=== PATIENT | female | born 1965 | race Hispanic/Latino ===

== ENCOUNTER 2021-06-21 05:38 | Day surgery (SDC) | payer BC ==
[2021-06-20 11:46] LABS: BASOPHILS % (AUTO) 1.3 % (0.0-5.0); EOSINOPHILS % (AUTO) 2.1 % (0.0-8.0); HEMATOCRIT 46.1 % (36-48); MEAN CORPUSCULAR HEMOGLOBIN 27.6 pg (27.0-33.0); MEAN CORPUSCULAR HGB CONC 31.2 g/dL (32.0-36.0); MEAN CORPUSCULAR VOLUME 88.5 fL (79-99); MONOCYTES % (AUTO) 8.8 % (3.0-13.0); NEUTROPHILS % (AUTO) 53.5 % (40.0-77.0); PLATELET COUNT (AUTO) 240 K/uL (130-400); RED BLOOD CELL COUNT(AUTO) 5.21 MIL/uL (4.00-5.50); WHITE BLOOD COUNT (AUTO) 6.3 K/uL (4.8-10.8)
[2021-06-20 13:57] VITALS: BP 171/98
[2021-06-21] VITALS (16 sets, daily range): BP systolic 108–143; BP diastolic 65–77
[~2021-06-21] VITALS: Ht 172.7 cm; Wt 109.1 kg
[~2021-06-21 05:38] MED LIST: GLYB1TAB30 PO
[2021-06-21] MEDS ORDERED: 0.9%NACL 1000ML 1,000 ML IV ONE (05:49)
[2021-06-21] MEDS ORDERED: LIDOCAINE PF 100MG/5ML (2%) SYRINGE 5ML ONE (06:47)
[2021-06-21] MEDS ORDERED: MIDAZOLAM HCL 1 MG/ML 2ML VIAL ONE (06:47)
[2021-06-21] MEDS ORDERED: PROPOFOL 10 MG/ML 20ML VIAL IV ONE (06:47)
[2021-06-21] MEDS ORDERED: ONDANSETRON 4MG INJ ONE (06:48)
[2021-06-21] MEDS ORDERED: ROCURONIUM 10MG/1ML SYR 10 MG/ML ML ONE (06:48)
[2021-06-21] MEDS ORDERED: FENTANYL CITRATE PF 50 MCG/1 ML 2ML VIAL ONE (06:48)
[2021-06-21] MEDS ORDERED: SUCCINYLCHOLINE 200MG/10ML SYR ONE (07:07)
== END 2021-06-21 09:06 | disposition home or self-care (01) ==
LOC: DAH 05:38
PROVIDERS: ATTEND Obstetrics & Gynecology
DX: N95.0 Postmenopausal bleeding (principal); E11.9 Type 2 diabetes mellitus without complications; E66.01 Morbid (severe) obesity due to excess calories; N95.8 Other specified menopausal and perimenopausal disorders; Z79.899 Other long term (current) drug therapy; Z20.822 Contact with and (suspected) exposure to COVID-19
CPT/HCPCS: 36415; 58558; 82948 ×2; 85025; 86850; 86900; 86901; 87635; A4215; A4221; A4222; A4223; A4351; A4355; A4663; A6260; C9803; J0330; J2001; J2250; J2405; J2704; J3010; J7030 ×2

== ENCOUNTER 2021-08-15 18:31 | Emergency (ER) | payer BC ==
[~2021-08-15] VITALS: Ht 172.7 cm; Wt 108.9 kg
[2021-08-15 19:54] LABS: BASOPHILS % (AUTO) 0.7 % (0.0-5.0); EOSINOPHILS % (AUTO) 2.7 % (0.0-8.0); HEMATOCRIT 35.6 % (36-48); LYMPHOCYTES % (AUTO) 26.4 % (21.0-51.0); MEAN CORPUSCULAR HEMOGLOBIN 28.1 pg (27.0-33.0); MEAN CORPUSCULAR HGB CONC 31.7 g/dL (32.0-36.0); MEAN CORPUSCULAR VOLUME 88.6 fL (79-99); MONOCYTES % (AUTO) 8.1 % (3.0-13.0); NEUTROPHILS % (AUTO) 61.4 % (40.0-77.0); PLATELET COUNT (AUTO) 233 K/uL (130-400); RED BLOOD CELL COUNT(AUTO) 4.02 MIL/uL (4.00-5.50); RED CELL DISTRIBUTION WIDTH 13.9 % (11.0-15.5); WHITE BLOOD COUNT (AUTO) 7.3 K/uL (4.8-10.8)
[2021-08-15 20:15] LABS: CREATININE 0.8 mg/dL (0.5-1.5); POTASSIUM 4.3 mmol/L (3.5-5.1)
[2021-08-15 20:16] LABS: B-TYPE NATRIURETIC PEPTIDE 38 pg/mL (0-100)
[2021-08-15 20:22] LABS: ALBUMIN 3.2 g/dL (3.5-5.0); BILIRUBIN,TOTAL 0.3 mg/dL (0.2-1.0); TOTAL PROTEIN, SERUM 6.5 g/dL (6.0-8.3)
[2021-08-15 21:50] VITALS: BP 114/58
== END 2021-08-15 22:12 | disposition home or self-care (01) ==
LOC: EDH 18:31
DX: R60.0 Localized edema (principal); E11.9 Type 2 diabetes mellitus without complications; E78.00 Pure hypercholesterolemia, unspecified; I10 Essential (primary) hypertension; Z79.84 Long term (current) use of oral hypoglycemic drugs; Z90.710 Acquired absence of both cervix and uterus
CPT/HCPCS: 36415; 71045; 80053; 82550; 83880; 84484; 85025; 85378; 93970

== ENCOUNTER 2023-08-12 00:59 | Observation (INO) | payer BC, OTHER ==
[~2023-08-12] VITALS: Ht 172.7 cm; Wt 109.8 kg
[2023-08-12] VITALS (22 sets, daily range): BP systolic 102–164; BP diastolic 50–82; PULSE 55–81; RESP 12–20; O2SAT 96
[~2023-08-12 00:59] MED LIST changes: +GLYB-171 PO; -GLYB1TAB30 PO
[2023-08-12 01:21] LABS: APPEARANCE,URINE CLEAR (CLEAR); BILIRUBIN,URINE NEGATIVE (NEGATIVE); COLOR,URINE LIGHT-YELLOW (YELLOW); GLUCOSE, URINE (UA) >=1000 mg/dL (NEGATIVE); KETONES,URINE NEGATIVE (NEGATIVE); LEUKOCYTE ESTERASE ,URINE NEGATIVE Leu/uL (NEGATIVE); NITRATE,URINE NEGATIVE (NEGATIVE); OCCULT BLOOD,URINE NEGATIVE (NEGATIVE); PROTEIN,URINE NEGATIVE (NEGATIVE); UROBILINOGEN,URINE 0.2 mg/dL (0.2-1.0)
[2023-08-12 01:22] LABS: ADD UA MICROSCOPIC YES
[2023-08-12 01:24] LABS: MUCUS,URINE RARE LPF (None Seen); NON-SQUAMOUS EPITHELIAL CELL <1 /HPF (0-2); SQUAMOUS EPITHELIAL CELL,UR RARE /HPF (0-2); WBC,URINE 0-1 /HPF (0-1)
[2023-08-12 01:26] LABS: BASOPHILS # (AUTO) 0.11 K/uL (0.00-0.20); BASOPHILS % (AUTO) 0.6 % (0.0-5.0); EOSINOPHILS # (AUTO) 0.04 K/uL (0.00-0.70); EOSINOPHILS % (AUTO) 0.2 % (0.0-8.0); HEMATOCRIT 41.8 % (36-48); IMMATURE GRANULOCYTE ABSOLUTE 0.12 K/uL (0-1); LYMPHOCYTES # (AUTO) 1.7 K/uL (1.0-4.8); LYMPHOCYTES % (AUTO) 10.1 % (21.0-51.0); MEAN CORPUSCULAR HEMOGLOBIN 27.6 pg (27.0-33.0); MEAN CORPUSCULAR HGB CONC 32.8 g/dL (32.0-36.0); MEAN CORPUSCULAR VOLUME 84.1 fL (79-99); MONOCYTES # (AUTO) 0.9 K/uL (0.1-1.0); MONOCYTES % (AUTO) 5.2 % (3.0-13.0); NEUTROPHILS # (AUTO) 14.2 K/uL (1.8-7.7); NEUTROPHILS % (AUTO) 83.2 % (40.0-77.0); PLATELET COUNT (AUTO) 261 K/uL (130-400); RED BLOOD CELL COUNT(AUTO) 4.97 MIL/uL (4.00-5.50); RED CELL DISTRIBUTION WIDTH 13.7 % (11.0-15.5); WHITE BLOOD COUNT (AUTO) 17.1 K/uL (4.8-10.8)
[2023-08-12 01:26] LABS: SARS-CoV-2, RNA, NAAT NEGATIVE SARS CoV-2 (NEGATIVE)
[2023-08-12 01:30] LABS: INFLUENZA TYPE A Negative For Type A (NEGATIVE); INFLUENZA TYPE B Negative For Type B (NEGATIVE)
[2023-08-12 01:33] LABS: CREATININE 0.8 mg/dL (0.5-1.5); POTASSIUM 4.2 mmol/L (3.5-5.1)
[2023-08-12 01:37] LABS: ALBUMIN 3.6 g/dL (3.5-5.0); BILIRUBIN,TOTAL 0.5 mg/dL (0.2-1.0)
[2023-08-12] MEDS ORDERED: IOHEXOL-350 75 ML VIAL IV ONE (02:24)
[2023-08-12] MEDS ORDERED: MORPHINE 2 MG SYG IVP ONE (02:30)
[2023-08-12] MEDS ORDERED: ONDANSETRON 4MG INJ ONE ×2 (02:45→12:06)
[2023-08-12] MEDS ORDERED: ONDANSETRON 4MG INJ IVP ONE (03:00)
[2023-08-12] MEDS ORDERED: 0.9%NACL 1000ML 1,000 ML IV ONE (04:00)
[2023-08-12] MEDS ORDERED: ZOSYN 3.375GM +NS 50ML IV ONE (04:00)
[2023-08-12] MEDS ORDERED: MORPHINE 2 MG SYG IVP PRN (04:30)
[2023-08-12] MEDS: ZOSYN 3.375GM +NS 50ML IV SCH ×3 (04:30→19:14)
[2023-08-12] MEDS ORDERED: ONDANSETRON 4MG INJ IVP PRN (04:30)
[2023-08-12] MEDS: PANTOPRAZOLE 40 MG/VIAL IVP SCH ×2 (04:51→09:00)
[2023-08-12 04:53] LABS: INR < 0.93 (0.85-1.15); PROTHROMBIN TIME 10.6 SEC (9.6-11.6)
[2023-08-12 04:54] LABS: PARTIAL THROMBOPLASTIN TIME 27.9 SEC (26.3-35.5)
[2023-08-12 04:56] LABS: HEMOGLOBIN A1C 7.2 % (4.0-6.0)
[2023-08-12] MEDS: INSULIN HUMULIN R 100 UNIT/ML 3ML SQ SCH ×4 (06:00→20:47)
[2023-08-12] MEDS ORDERED: HYDROMORPHONE 1 MG INJ IVP ONE (06:00)
[2023-08-12] MEDS: LACTATED RINGERS 1000ML 1,000 ML IV SCH ×3 (06:11→19:41)
[2023-08-12] MEDS ORDERED: PROPOFOL 10 MG/ML 20ML VIAL IV ONE (11:14)
[2023-08-12] MEDS ORDERED: SUCCINYLCHOLINE 200MG/10ML SYR ONE (11:14)
[2023-08-12] MEDS ORDERED: LIDOCAINE PF 100MG/5ML (2%) SYRINGE 5ML ONE (11:14)
[2023-08-12] MEDS ORDERED: ROCURONIUM BROMIDE 10MG/1ML 5ML VL ONE (11:15)
[2023-08-12] MEDS ORDERED: MIDAZOLAM HCL 1 MG/ML 2ML VIAL ONE (11:15)
[2023-08-12] MEDS ORDERED: FENTANYL CITRATE PF 50 MCG/1 ML 2ML VIAL ONE (11:15)
[2023-08-12] MEDS ORDERED: BUPIVACAINE/PF 0.25% 30ML VIAL IJ ONE (11:30)
[2023-08-12] MEDS ORDERED: LIDOCAINE 1%-EPI 1:100,000 20 ML VIAL ONE (11:30)
[2023-08-12] MEDS ORDERED: CEFAZOLIN SODIUM 1 GM VIAL ONE (11:30)
[2023-08-12] MEDS ORDERED: BUPIVACAINE/EPI/PF 0.25% 30ML VIAL IJ ONE (11:50)
[2023-08-12] MEDS ORDERED: EPHEDRINE SULFATE 50 MG/ML AMPULE ONE ×2 (11:53→13:40)
[2023-08-12] MEDS ORDERED: DEXAMETHASONE SOD PHOSPHATE 10MG/ML 1ML VIAL ONE (12:06)
[2023-08-12] MEDS ORDERED: NEOSTIGMINE METHYLSULFATE 1MG/ML IV ONE (12:18)
[2023-08-12] MEDS ORDERED: ZOSYN 3.375GM+NS 50ML 50 ML ONE (13:28)
[2023-08-12] MEDS ORDERED: HYDROMORPHONE 1 MG INJ IVP PRN (15:30)
[2023-08-12] MEDS ORDERED: OXYCODONE/ACETAMIN 5/325MG TAB PO PRN (15:30)
[2023-08-13] MEDS: LACTATED RINGERS 1000ML 1,000 ML IV SCH ×2 (03:33→11:39)
[2023-08-13] MEDS: ZOSYN 3.375GM +NS 50ML IV SCH ×2 (03:34→11:41)
[2023-08-13 04:00] VITALS: BP 102/55; PULSE 72; RESP 20
[2023-08-13 04:32] LABS: BASOPHILS # (AUTO) 0.03 K/uL (0.00-0.20); BASOPHILS % (AUTO) 0.2 % (0.0-5.0); HEMATOCRIT 35.4 % (36-48); LYMPHOCYTES # (AUTO) 1.5 K/uL (1.0-4.8); LYMPHOCYTES % (AUTO) 10.9 % (21.0-51.0); MEAN CORPUSCULAR HEMOGLOBIN 27.6 pg (27.0-33.0); MEAN CORPUSCULAR HGB CONC 32.2 g/dL (32.0-36.0); MEAN CORPUSCULAR VOLUME 85.7 fL (79-99); MONOCYTES # (AUTO) 0.8 K/uL (0.1-1.0); MONOCYTES % (AUTO) 5.8 % (3.0-13.0); NEUTROPHILS # (AUTO) 11.4 K/uL (1.8-7.7); NEUTROPHILS % (AUTO) 82.4 % (40.0-77.0); PLATELET COUNT (AUTO) 213 K/uL (130-400); RED BLOOD CELL COUNT(AUTO) 4.13 MIL/uL (4.00-5.50); WHITE BLOOD COUNT (AUTO) 13.8 K/uL (4.8-10.8)
[2023-08-13 05:04] LABS: ALBUMIN 2.7 g/dL (3.5-5.0); BILIRUBIN,TOTAL 0.9 mg/dL (0.2-1.0); CREATININE 0.9 mg/dL (0.5-1.5); MAGNESIUM 1.8 mg/dL (1.80-2.40); POTASSIUM 4.2 mmol/L (3.5-5.1); TOTAL PROTEIN, SERUM 6.3 g/dL (6.0-8.3)
[2023-08-13] MEDS: INSULIN HUMULIN R 100 UNIT/ML 3ML SQ SCH ×2 (06:04→10:47)
[2023-08-13 07:46] VITALS: BP 136/64; PULSE 56; RESP 16
[2023-08-13 08:00] VITALS: O2SAT 96
[2023-08-13] MEDS: PANTOPRAZOLE 40 MG/VIAL IVP SCH (09:10)
[2023-08-13 11:19] VITALS: BP 130/75; PULSE 55; RESP 16
[2023-08-13] MEDS ORDERED: LEVO750T39 PO (12:06)
== END 2023-08-13 16:00 | disposition home or self-care (01) ==
LOC: EDH 00:59 → EDHIP 04:08 → 2CV 08:39 → 4DH 15:45
PROVIDERS: ADMIT Internal Medicine; ATTEND Internal Medicine
DX: K35.80 Unspecified acute appendicitis (principal); Z20.822 Contact with and (suspected) exposure to COVID-19; E11.65 Type 2 diabetes mellitus with hyperglycemia; E87.1 Hypo-osmolality and hyponatremia; D72.829 Elevated white blood cell count, unspecified; E78.00 Pure hypercholesterolemia, unspecified; I10 Essential (primary) hypertension; K76.0 Fatty (change of) liver, not elsewhere classified; E66.01 Morbid (severe) obesity due to excess calories; Z68.36 Body mass index [BMI] 36.0-36.9, adult; Z90.710 Acquired absence of both cervix and uterus
CPT/HCPCS: 44970; 96376 ×2; 96372 ×2; 96365; 96366 ×2; 96375; 83036; 84484; 80053 ×2; 83690; 85025 ×2; 85610; 85730; 86850; 86900; 86901; 87804 ×2; 82948 ×6; 81001; 36415 ×2; 88304; 87635; 71045; 74177; 76705; 99291; 93005; 84145; 83735; G0378 ×33; J7030 ×2; A4344; C9803; J7120 ×2; J3010; J0690; J3490 ×3; J1170; J0330; J1100; J2270 ×2; J0665; J2001; J2250; J2704; J2405 ×2; J2710; J2543 ×5; C9113 ×2; Q9967; C1769 ×3; A4649 ×4; A4930; J1815

== ENCOUNTER → 2024-07-07 | Outpatient (CLI) | payer OTHER ==
[~2024-07-07] MED LIST changes: +LEVO750T40 PO
--- NOTE | 2024-07-07 16:12 | HMCIMG ---
CT ABDOMEN W/O CONTRAST REASON: PERIUMNBILICAL PAIN COMPARISON: 08/12/2023 FINDINGS: Lung bases are clear. There are no focal liver lesions. There are normal-appearing kidneys.. Spleen and pancreas appear unremarkable. The gallbladder appears normal as well. Bowel loops appear unremarkable. The appendix was not included in the imaging volume on the abdomen only CT. There is no evidence of free fluid or intraperitoneal air. There are no focal fluid collections. Aorta and retroperitoneum appear normal.. The anterior abdominal wall is intact. There is no evidence of periumbilical or other ventral hernia. Osseous structures appear unremarkable. IMPRESSION: 1. Negative noncontrast CT abdomen with attention to the periumbilical region. CT was performed with one or more following dose reduction techniques: automated exposure control, adjustment of the mA and kv according to patient's size, or use of a iterative reconstruction technique.
== END | disposition home or self-care (01) ==
LOC: RAH 14:13
PROVIDERS: ATTEND Family Medicine
DX: R10.33 Periumbilical pain (principal)
CPT/HCPCS: 74150

== ENCOUNTER 2024-07-10 19:18 | Emergency (ER) | payer OTHER ==
[~2024-07-10] VITALS: Ht 167.6 cm; Wt 111.1 kg
--- NOTE | 2024-07-10 19:33 | ERN ---
ED Note History of Present Illness Stated Complaint: CHEST PAIN, SHALLOW BREATHING Chief Complaint: Chest Pain Time Seen by MD: 19:24 Dictation: PATIENT IS A 59-YEAR-OLD FEMALE COMING IN TODAY WITH COMPLAINTS OF SUBSTERNAL CHEST PAIN THAT RADIATES TO LEFT INFERIOR BREAST AREA ONSET15 30 THIS AFTERNOON. NO SOB NO JAW PAIN NO BACK PAIN NO ARM PAIN. STATES SHE HAS A HISTORY OF DIABETES AND CHOLESTEROL, HAS NEVER HAD ANY HISTORY OF CAD OR CHEMICAL ANALYST. STATES SHE WENT TO A LOCAL URGENT CARE WHO TOLD HER THAT THEY WERE UNABLE TO PERFORM EKG OR TROPONIN SO THEY SUGGESTED SHE GO TO THE EMERGENCY ROOM. Allergies: Coded Allergies: No Known Drug Allergies (Unverified Allergy, Unknown, 06/20/21) Home Meds Active Scripts Levofloxacin (Levofloxacin) 750 Mg Tablet, 750 MG PO DAILY, #7 TAB Prov:DEBORAH MAURER WILLOWER 08/13/23 Reported Medications Glyburide/Metformin HCl (Glyburide-Metformin 2.5-500 mg) 1 Each Tablet, 1 EACH PO HS, TAB 06/20/21 Past Medical History Past Medical History: Diabetes-Type II, High Cholesterol, Hypertension Surgical History: Appendectomy, Hysterectomy PSYCH History: no pertinent psych hx Family History: Negative Social History: Negative, Lives with family History: Not Applicable RN Note Reviewed/Agreed w/PFSH: Yes Review of System Dictation CONSTITUTIONAL: NEGATIVE EXCEPT FOR HPI HEAD/FACE: NEGATIVE EXCEPT FOR HPI EENT: NEGATIVE EXCEPT FOR HPI RESPIRATORY: NEGATIVE EXCEPT FOR HPI CHEST PAIN THAT RADIATES TO LEFT INFERIOR BREAST AREA GASTROINTESTINAL/ABDOMINAL: NEGATIVE EXCEPT FOR HPI GENITOURINARY: NEGATIVE EXCEPT FOR HPI MUSCULOSKELETAL: NEGATIVE EXCEPT FOR HPI INTEGUMENTARY: NEGATIVE EXCEPT FOR HPI NEUROLOGICAL/PSYCH: NEGATIVE EXCEPT FOR HPI HEMATOLOGIC/LYMPHATIC: NEGATIVE EXCEPT FOR HPI ALL SYSTEMS NEGATIVE, EXCEPT NOTED ABOVE. 13 POINT REVIEW OF SYSTEMS ASSESSED AND ALL NEGATIVE EXCEPT FOR ABOVE. Initial Vital Sign VS Vital Signs Date Time Temp Pulse Resp B/P (MAP) Pulse Ox O2 Delivery O2 Flow Rate FiO2 07/10/24 19:20 97.9 83 16 163/90 98 Room Air Physical Exam Dictation VITAL SIGNS REVIEWED GENERAL APPEARANCE: ALERT, ORIENTED X 3, NO ACUTE DISTRESS, WELL DEVELOPED, NOURISHED. HEAD AND FACE: NON-TRAUMATIC. EYES: PERRL, PINK CONJUNCTIVAS, EYELID NO TRAUMA, ANTERIOR CHAMBER WITH ARCUS SENILIS. EARS: PINNAS INTACT AND NO SIGNS OF TRAUMA OR ERYTHEMA EAR CANALS CLEAR AND NO DISCHARGE TM NO ERYTHEMA NOSE: NO DISCHARGE, NO BLEEDING. OROPHARYNX: MOUTH NORMAL, TONGUE PINK, PHARYNX CLEAR,NO ERYTHEMA, TONSILS NO EXUDATES, NO ABSCESSES NOTED, MUCOUS MEMBRANE MOIST NECK: SUPPLE, NON-TENDER, NO THYROMEGALY, NO MASSES, NO JVD, NO BRUITS BREAST:DEFERRED CHEST:NO TENDERNESS, NO CREPITUS, NO PARADOXICAL MOVEMENT, NO RETRACTIONS NO TENDERNESS WITH PALPATION LUNGS:CLEAR, WELL-VENTILATED, SYMMETRIC, NO RALES, NO WHEEZING, NO RHONCHI, NO STRIDOR, GOOD BREATH SOUNDS BILATERALLY HEART: REGULAR RATE, REGULAR RHYTHM, NO MURMUR, NO GALLOPS VASCULAR: NO PERIPHERAL EDEMA, ABDOMEN: SOFT, POSITIVE BOWEL SOUNDS, NONDISTENDED, NO GUARDING, NONTENDER, NO REBOUND, NO MASSES NO HEPATOMEGALY, NO SPLENOMEGALY, NO ROSE'S SIGN, NO HERNIAS. RECTAL: DEFERRED GENITAL: DEFERRED NEUROLOGICAL: NORMAL SPEECH, MOTOR FUNCTION INTACT, SENSORY FUNCTION INTACT MUSCULOSKELETAL: NECK NONTENDER, FULL RANGE OF MOTION, BACK NONTENDER, FULL RANGE OF MOTION, EXTREMITIES: NONTENDER, FULL RANGE OF MOTION SKIN: COLOR PINK, DRY, NO TURGOR, NO RASH, NO LACERATIONS, NO ABRASIONS, NO CONTUSIONS. LYMPHATIC: DEFERRED Results (Laboratory/Radiology) Laboratory/Radiology Laboratory Tests Test 07/10/24 19:40 07/10/24 19:49 07/10/24 20:14 Urine Color COLORLESS (YELLOW) Urine Appearance CLEAR (CLEAR) Urine pH 5.0 (5.0-8.0) Urine Specific [place] 1.005 (1.001-1.031) Urine Protein NEGATIVE mg/dL (NEGATIVE) Urine Glucose (UA) NEGATIVE mg/dL (NEGATIVE) Urine Ketones NEGATIVE mg/dL (NEGATIVE) Urine Occult Blood NEGATIVE (NEGATIVE) Urine Nitrate NEGATIVE (NEGATIVE) Urine Bilirubin NEGATIVE mg/dL (NEGATIVE) Urine Urobilinogen 0.2 mg/dL (0.2-1.0) Urine Leukocyte Esterase 25 Mamadou/uL (NEGATIVE) H Urine RBC None /HPF (0-1) Urine WBC 6-10 /HPF (0-1) H Urine Squamous Epithelial Cells RARE /HPF (0-2) Urine Non-Squamous Epithelial Cells 1 /HPF (0-2) Urine Bacteria RARE /HPF (None Seen) White Blood Count 9.2 K/uL (4.8-10.8) Red Blood Count 5.11 MIL/uL (4.00-5.50) Hemoglobin 14.2 g/dL (12.0-16.0) Hematocrit 43.1 % (36-48) Mean Corpuscular Volume 84.3 fL (79-99) Mean Corpuscular Hemoglobin 27.8 pg (27.0-33.0) Mean Corpuscular Hemoglobin Concent 32.9 g/dL (32.0-36.0) Red Cell Distribution Width 13.6 % (11.0-15.5) Platelet Count 274 K/uL (130-400) Mean Platelet Volume 10.7 fL (7.5-10.5) H Immature Granulocyte % (Auto) 0.4 % (0-1) Neutrophils (%) (Auto) 65.0 % (40.0-77.0) Lymphocytes (%) (Auto) 26.0 % (21.0-51.0) Monocytes (%) (Auto) 6.7 % (3.0-13.0) Eosinophils (%) (Auto) 1.1 % (0.0-8.0) Basophils (%) (Auto) 0.8 % (0.0-5.0) Neutrophils # (Auto) 6.0 K/uL (1.8-7.7) Lymphocytes # (Auto) 2.4 K/uL (1.0-4.8) Monocytes # (Auto) 0.6 K/uL (0.1-1.0) Eosinophils # (Auto) 0.10 K/uL (0.00-0.70) Basophils # (Auto) 0.07 K/uL (0.00-0.20) Absolute Immature Granulocyte (auto 0.04 K/uL (0-1) Nucleated Red Blood Cells 0.0 % (0.0-0.19) Prothrombin Time 11.0 SEC (9.6-11.6) Prothromb Time International Ratio 1.02 (0.85-1.15) Activated Partial Thromboplast Time 27.4 SEC (26.3-35.5) Sodium Level 139 mmol/L (136-145) Potassium Level 4.4 mmol/L (3.5-5.1) Chloride Level 103 mmol/L (101-111) Carbon Dioxide Level 26 mmol/L (21-32) Blood Urea Nitrogen 12 mg/dL (7-18) Creatinine 0.9 mg/dL (0.5-1.0) Glomerular Filtration Rate Calc 73 mL/min (>90) Random Glucose 173 mg/dL (70-105) H Total Calcium 8.9 mg/dL (8.5-10.1) Total Creatine Kinase 51 U/L (21-232) # Troponin I High Sensitivity < 4 ng/L (4-50) L B-Type Natriuretic Peptide 27 pg/mL (0-100) Troponin I < 0.05 ng/mL (0.00-0.05) CHEST 1VW HISTORY: Chest pain COMPARISON: 08/12/2023 FINDINGS: A frontal projection of the chest was obtained. No acute pulmonary infiltrates is seen. The heart is borderline enlarged. Degenerative changes are seen. Prominent interstitial markings are seen. No evidence of aortic calcification is seen. IMPRESSION: 1. No acute pulmonary infiltrate is seen. Labs Reviewed?: Yes EKG Comment: EKG SINUS RHYTHM HEART RATE 76/LEFT ATRIAL ENLARGEMENT/LEFT AXIS DEVIATION NO CHANGE FROM EKG DONE 08/08/2023 ED Course ED Course Orders Procedure Category Date Status Time Vital Signs Per CPOE 07/10/24 Transmitted Routine 19:29 B-Type Natriuretic LAB 07/10/24 Complete Peptide 19:29 Chest 1vw RAD 07/10/24 Resulted 19:29 12 Lead Ekg Tracing- EKG 07/10/24 Logged Technical 19:29 Oxygen By Nc/Pulse Ox CPOE 07/10/24 Transmitted 19:29 Maintain Iv CPOE 07/10/24 Transmitted 19:29 Iv Insertion CPOE 07/10/24 Transmitted 19:29 Cardiac Monitoring CPOE 07/10/24 Transmitted 19:29 Pulse Oximetry With CPOE 07/10/24 Transmitted Vs And Prn 19:29 Cbc With Differential LAB 07/10/24 Complete 19:29 Activity: Br W/Brp CPOE 07/10/24 Transmitted With Assist 19:29 Creatine Kinase, Total LAB 07/10/24 Complete 19:29 Urinalysis Profile LAB 07/10/24 Complete 19:29 Troponin Poc Order LAB 07/10/24 Complete Only 19:29 Bedside Troponin-I LAB.ER 07/10/24 In Process (Poc) 19:29 Basic Metabolic Panel LAB 07/10/24 Complete 19:29 Pt And Ptt LAB 07/10/24 Complete 19:29 Troponin I High LAB 07/10/24 Complete Sensitivity 19:29 Culture Urine IRZWAN 07/10/24 In Process 20:13 Vital Signs Date Time Temp Pulse Resp B/P (MAP) Pulse Ox O2 Delivery O2 Flow Rate FiO2 07/10/24 19:20 97.9 83 16 163/90 98 Room Air 2045, PATIENT ABLE TO REPLICATE PAIN TO INFERIOR CHEST WALL WITH EXPIRATION ONLY. NO NAUSEA VOMITING NO SOB NO SUBSTERNAL PAIN NO NECK PAIN NO ARM PAIN NO BACK PAIN. DISCHARGED HOME TO FOLLOW UP WITH HER PRIMARY CARE DOCTOR TOMORROW WITH DIAGNOSIS OF ATYPICAL CHEST PAIN COSTOCHONDRITIS HEART Score Response (Comments) Value EKG: Repolarization changes 1 Age: 45-65yrs (+1) 1 Risk Factors: 1-2 risk factors (+1) 1 Initial Troponin: Normal limit (0) 0 Total 3 Medical Decision Making MDM MDM: DIFFERENTIAL DIAGNOSIS: A CS/AMI/COSTOCHONDRITIS/PNEUMONIA/BRONCHITIS/ELECTROLYTE IMBALANCE/DEHYDRATION RATIONALE: TESTS CONSIDERED AND ORDERED SECONDARY TO SHARED DECISION MAKING INCLUDE: EKG/LABS/RADIOLOGY PREVIOUS OUTSIDE RECORDS REVIEWED: OLD ER VISITS. REVIEWED RISK OF COMPLICATION AND/OR MORBIDITY OR MORTALITY OF PATIENT MANAGEMENT: NONE MEDICATIONS-PER MEDICATION RECONCILIATION SEE NURSE'S NOTES NEED FOR HOSPITALIZATION: PATIENT DOES NOT MEET CRITERIA FOR HOSPITALIZATION. NONE NEED FOR EMERGENCY MAJOR/MINOR SURGERY: NO THERE ARE NO SOCIAL CONCERNS WITH THIS PATIENT. PRESCRIPTION DRUG MANAGEMENT IBUPROFEN PRESCRIPTIONS WILL INCLUDE SYMPTOMATIC CARE PATIENT'S PRIOR EXTERNAL MEDICAL RECORDS FROM OTHER ER VISITS WERE REVIEWED BY ME INDICATED. PRIOR TESTING AND RESULTS FROM PREVIOUS VISITS WERE REVIEWED. PRIOR TESTS WERE TAKEN INTO ACCOUNT WITH MEDICAL DECISION MAKING AND RESOURCE UTILIZATION, INDEPENDENT HISTORIAN/HISTORIANS WERE USED TO OBTAIN COMPLETE MEDICAL HISTORY. I INDEPENDENTLY INTERPRETED THE TEST THAT WERE PERFORMED, RESULTS WERE REVIEWED BY ME AND CONSIDERED FINDINGS ON RADIOLOGY IF ORDERED. MEDICAL MANAGEMENT AND EXAMINATION INTERPRETATION DISCUSSIONS WERE HAD BY ME WITH OTHER QUALIFIED HEALTHCARE PROFESSIONALS INDICATED FOR THE PATIENT'S CARE. DX & DISP Disposition: Discharge Departure Impression: Primary Impression: Atypical chest pain Additional Impressions: Acute costochondritis, Uncontrolled diabetes mellitus Condition: Stable Scripts Ibuprofen (Ibuprofen 800 mg Tab) 800 Mg Tab 800 MG PO Q8H PRN for fever or pain, #30 TAB 0 Refills Prov: JENNI WRIGHT COGNOS ADMINISTRATOR 07/10/24 Additional Instructions: FOLLOW-UP WITH PRIMARY CARE PROVIDER IN 1 TO 2 DAYS. TAKE MEDICATIONS DIRECTED HERE IN THE EMERGENCY ROOM. OKAY TO CONTINUE HOME MEDICATIONS UNLESS OTHERWISE DISCUSSED DURING YOUR VISIT IN THE EMERGENCY ROOM TODAY. RETURN TO YOUR NEAREST EMERGENCY ROOM IF SYMPTOMS WORSEN OR IF THERE IS NO IMPROVEMENT. CALL 911 IF YOU NEED IMMEDIATE ASSISTANCE. TAKE TYLENOL OR MOTRIN [id number] NEEDED AND IF NO CONTRAINDICATIONS ARE PRESENT. INCREASE ORAL HYDRATION. A WOUND CULTURE OR URINE CULTURE WAS ORDERED HERE IN THE EMERGENCY ROOM DEPARTMENT PLEASE FOLLOW-UP WITH PRIMARY CARE PROVIDER AND ADVISE THEM TO GET REPEAT PORTS FROM OUR FACILITY. IF YOU HAD ANY KAYLEE WRAP/SPLINTS THAT WERE APPLIED HERE, PLEASE DO NOT REMOVE THEM UNTIL YOU SEE YOUR PRIMARY CARE OR SPECIALTY. TAKE IBUPROFEN EVERY 6-8 HOURS WITH FOOD NEEDED. NO WORK TOMORROW AND FOLLOW UP WITH YOUR PRIMARY CARE DOCTOR. Referrals: QUINCY GARCIA MD (PCP) Time of Disposition: 20:49 I have reviewed the case, and I agree with, Diagnosis and Plan JENNI WRIGHT NP Jul 10, 2024 19:32
--- NOTE | 2024-07-10 20:02 | HMCIMG ---
CHEST 1VW HISTORY: Chest pain COMPARISON: 08/12/2023 FINDINGS: A frontal projection of the chest was obtained. No acute pulmonary infiltrates is seen. The heart is borderline enlarged. Degenerative changes are seen. Prominent interstitial markings are seen. No evidence of aortic calcification is seen. IMPRESSION: 1. No acute pulmonary infiltrate is seen.
[2024-07-10 20:07] LABS: BASOPHILS # (AUTO) 0.07 K/uL (0.00-0.20); BASOPHILS % (AUTO) 0.8 % (0.0-5.0); EOSINOPHILS % (AUTO) 1.1 % (0.0-8.0); HEMATOCRIT 43.1 % (36-48); IMMATURE GRANULOCYTE ABSOLUTE 0.04 K/uL (0-1); LYMPHOCYTES # (AUTO) 2.4 K/uL (1.0-4.8); MEAN CORPUSCULAR HEMOGLOBIN 27.8 pg (27.0-33.0); MEAN CORPUSCULAR HGB CONC 32.9 g/dL (32.0-36.0); MEAN CORPUSCULAR VOLUME 84.3 fL (79-99); MONOCYTES # (AUTO) 0.6 K/uL (0.1-1.0); MONOCYTES % (AUTO) 6.7 % (3.0-13.0); PLATELET COUNT (AUTO) 274 K/uL (130-400); RED BLOOD CELL COUNT(AUTO) 5.11 MIL/uL (4.00-5.50); RED CELL DISTRIBUTION WIDTH 13.6 % (11.0-15.5); WHITE BLOOD COUNT (AUTO) 9.2 K/uL (4.8-10.8)
[2024-07-10 20:09] LABS: ADD UA MICROSCOPIC YES; APPEARANCE,URINE CLEAR (CLEAR); BILIRUBIN,URINE NEGATIVE (NEGATIVE); COLOR,URINE COLORLESS (YELLOW); GLUCOSE, URINE (UA) NEGATIVE (NEGATIVE); KETONES,URINE NEGATIVE (NEGATIVE); LEUKOCYTE ESTERASE ,URINE 25 Leu/uL (NEGATIVE); NITRATE,URINE NEGATIVE (NEGATIVE); OCCULT BLOOD,URINE NEGATIVE (NEGATIVE); PROTEIN,URINE NEGATIVE (NEGATIVE); UROBILINOGEN,URINE 0.2 mg/dL (0.2-1.0)
[2024-07-10 20:13] LABS: BACTERIA,URINE RARE /HPF (None Seen); NON-SQUAMOUS EPITHELIAL CELL 1 /HPF (0-2); SQUAMOUS EPITHELIAL CELL,UR RARE /HPF (0-2)
[2024-07-10 20:15] LABS: CREATININE 0.9 mg/dL (0.5-1.0); POTASSIUM 4.4 mmol/L (3.5-5.1)
[2024-07-10 20:23] LABS: INR 1.02 (0.85-1.15)
[2024-07-10 20:24] LABS: PARTIAL THROMBOPLASTIN TIME 27.4 SEC (26.3-35.5)
[2024-07-10 20:30] LABS: B-TYPE NATRIURETIC PEPTIDE 27 pg/mL (0-100)
[2024-07-10] MEDS ORDERED: IBUP-2077 PO (20:50)
[2024-07-10] MEDS: ketOROlac 60 MG VIAL (30MG/ML) IM ONE (21:45)
[2024-07-10 21:47] VITALS: BP 148/72; PULSE 80; RESP 18; TEMP 97.8; O2SAT 100
--- NOTE | 2024-07-11 07:48 | EKG ---
[facility] Test Date: 2024-07-10 Test Time: 19:32:23 Pat Name: JEFRY MONTALVO Department: ED Room: Gender: Female Day Care Home Mother: [id number] : 1965 Requested By: NANCY PEÑA Order Number: [id number] Reading MD: Measurements Intervals [place] Rate: 76 P: 24 NH: 143 QRS: -32 QRSD: 92 T: 10 QT: 387 QTc: 436 Interpretive Statements Sinus rhythm Probable left atrial enlargement Left axis deviation Low voltage, precordial leads Consider anterior infarct No previous ECG available for comparison Please click the below link to view image of tracing.
== END 2024-07-10 21:49 | disposition home or self-care (01) ==
LOC: EDH 19:18
DX: M94.0 Chondrocostal junction syndrome [Tietze] (principal); E11.65 Type 2 diabetes mellitus with hyperglycemia; E78.00 Pure hypercholesterolemia, unspecified; I10 Essential (primary) hypertension; Z79.899 Other long term (current) drug therapy; Z90.49 Acquired absence of other specified parts of digestive tract; Z90.710 Acquired absence of both cervix and uterus
CPT/HCPCS: 99285; 71045; 82550; 84484 ×2; 80048; 83880; 85025; 85610; 85730; 87086; 81001; 36415; 96372; 93005; J1885